=== PATIENT | male | born 1945 | race Two or more races ===

== ENCOUNTER 2024-10-14 06:34 | Emergency (ER) | payer OTHER, SELFPAY ==
[2024-10-14 06:38] VITALS: BP 179/96
--- NOTE | 2024-10-14 07:08 | ED.GENMED ---
History of Present Illness
General
Chief Complaint: Breathing Problem
Source: patient
Exam Limitations: none
Time Seen by Provider: 10/14/24 07:07
Nursing documentation reviewed up to this point in time: agreed with
History of Present Illness
History of Present Illness:
Patient is a 79-year-old male with past medical history of hypertension, diabetes enlarged prostate hypothyroidism, questionable history of asthma who presents to the ER for evaluation of shortness of breath. Patient had a cough for the past
several weeks is on several doses of antibiotics. Over the past several days he has been very short of breath. He denies any associated chest pain, lower extremity swelling. He denies any recent fever or chills. He went to urgent care 2 days ago
and had a chest x-ray which was negative. He has been taking Mucinex. He was given an albuterol inhaler however last night was not able to sleep due to being so short of breath. He complains of abdominal pain radiating to his rectum and low back.
Pt has been moving his bowels.
Past History
Past History
ED Past Medical History: Asthma, GERD, HTN, Hypercholesterolemia, NIDDM (Diet-controlled ) and Other (BPH )
ED Past Surgical History: Cardiac (Cardiac catheter 2004 )
Social History
Tobacco: Non-smoker
Alcohol: None
Personal:
Living: with family
Employment: Employed
Family History
Family History: Other (Noncontributory)
Review of Systems
Review of Systems
Allergies reviewed?: Yes
Other source history: family
All Other Systems: ROS reviewed and negative except as documented in HPI and ROS
Constitutional: Reports no symptoms; Denies fever, fatigue or chills
EENT: Reports no symptoms
Respiratory: Reports cough and trouble breathing; Denies hemoptysis
Phy Exam
General Physical Exam
General Presentation: no apparent distress
General age: appears stated age
General Skin: warm and dry
General Habitus: normal
General Mental: alert
General Hydration: appears well hydrated
Cardiovascular Exam
Cardiovascular Exam: bradycardia
Pulmonary Exam
Pulmonary Exam: no respiratory distress and other (slight exp wheezing)
Neurological Exam
Neurological Exam: alert and oriented x3
Musculoskeletal Exam
Musculoskeletal Exam: full ROM
Skin Exam
Skin Exam: normal color and warm/dry
Psychiatric Exam
Psychiatric Exam: normal mood/affect
Scores
Heart Failure Risk
Heart Failure Risk Score: Not Applicable
Course
Orders/Labs/Results
Orders:
Orders
10/14/24 06:35
Electrocardiogram (*1) Urgent
Reason for Study: Shortness of Breath
EKG- Treatment ONCE
10/14/24 07:27
Cardiac Monitoring- Treatment ONCE
EKG- Treatment ONCE
Albuterol Nebs [Ventolin Nebules] 2.5 mg INH R NOW STA
Dexamethasone Sod Phosphate [Decadron] 10 mg IV NOW STA
10/14/24 07:30
Complete Blood Count/With Diff Urgent
Comprehensive Metabolic Panel Urgent
Lipase Urgent
10/14/24 07:50
COVID-19 Antigen Urgent
Source: Nasal Swab
Influenza A+B Rapid Molecular Urgent
ANGELINA Source: Nasal Swab
Specimen Description:
10/14/24 07:52
CT Pe/abd/pel W Urgent
Comment:
Reason For Exam: SOB/abd pain
10/14/24 08:54
Urinalysis Reflex To Culture Urgent
Date Specimen was Collected: 10/14/24
Time Specimen was Collected: 08:53
10/14/24 09:04
Ipratropium/Albuterol Sulfate [Duoneb] 3 ml INH R NOW ONE
10/14/24 09:48
Albuterol Nebs [Ventolin Nebules] 2.5 mg INH R NOW STA
Abnormal Lab Results
10/14/24
07:30
RBC 4.14 L 10^6/uL
(4.70-6.10)
Hct 37.9 L %
(39.0-52.0)
MCH 32.1 H pg
(27.0-31.0)
Neutrophils % 39.6 L %
(42.2-75.2)
Monocytes % 11.2 H %
(1.7-9.3)
Eosinophils % 9.6 H %
(0-6)
Sodium 133 L mmol/L
(135-145)
Glucose 125 H mg/dl
(70-99)
10/14/24 07:30
10/14/24 07:30
Vital Signs
Initial and Last Documented VS:
Initial Vital Signs
Temp Pulse Resp BP Pulse Ox
97.9 F 56 16 179/96 98
10/14/24 06:38 10/14/24 06:38 10/14/24 06:38 10/14/24 06:38 10/14/24 06:38
Last Documented Vital Signs
Temp Pulse Resp BP Pulse Ox
97.9 F 67 16 131/81 97
10/14/24 06:38 10/14/24 08:15 10/14/24 10:19 10/14/24 10:19 10/14/24 08:15
MDM/Problems Addressed
Differential Diagnosis Includes:
Not limited to bronchitis, pneumonia, less likely PE, influenza, COVID
MDM/Problems Addressed:
Patient has had persistent cough over the past several weeks . Questionable history of asthma as per patient daughter was unaware of this however patient has been seeing his family providers in urgent care for this cough he has been on inhalers and
Tesaneeshon Perles taken [id number] cough medicines but last night because the cough could not sleep. He has no prior history of CHF /PE.
No recent fever or chills. Daughter concerned about persistent symptoms .
Patient complains of pain throughout his entire body when he coughs including his abdomen.
He presents to the ER awake alert in no acute distress. he does have wheezing as documented however he is nontachypneic and afebrile .
Daughter requesting CAT scan due to persistent symptoms.. Patient had outpatient x-ray which was negative. Daughter was also concerned about patient's abdominal pain. On exam abdomen soft nontender healing complains abdominal pain with coughing.
CAT scan PE study was done as well as CAT scan of the abdomen which is negative for acute findings no PE. Patient was feeling better here in the ER with multiple and Decadron. Patient was able to ambulate not hypoxic wheezing has improved. CAT
scan consistent with bronchitis. This is consistent with patient's presenting symptoms.
Patient has inhalers at home as well as Tessalon.
Will DC with short course of steroids as patient has not been on steroids yet with close outpatient follow-up PCP.
*Radiology
Radiology exam reviewed: radiology read reviewed
*Pulse Oximetry
Patient hypoxic: no
*Critical Care Note
Total Time (30-74mins, 75-104mins- exclusive of procedures): Not Applicable
Data Reviewed
Review of Other/Old Records Reveals: Other (Echo reviewed from 2019; normal LV function)
ED Attending Note
-
Portions of this chart may have been created with voice recognition software.� Occasional wrong word or��sound alike� substitutions may have occurred due to the inherent limitations of voice recognition software.
Discharge Plan
Departure
Patient Disposition: Home (Routine Discharge)
Date of Disposition: 10/14/24
Time of Disposition: 10:17
Patient with high blood pressure during this ER visit?: Yes
Condition: Fair
Covid-19: Not Applicable
Discharge Problem:
Bronchitis
Instructions: Bronchitis in adults - ED discharge instructions, BLOOD PRESSURE
Prescriptions:
New
prednisone 20 mg tablet
40 mg PO DAILY Qty: 8 0RF
No Action
amlodipine 2.5 MG tablet
2.5 mg PO DAILY Qty: 30 0RF
lovastatin [Altoprev] 40 MG tablet extended release 24 hr
40 mg PO DAILY
dutasteride 0.5 MG capsule
0.5 mg PO DAILY
carvedilol phosphate 20 MG capsule, ER multiphase 24 hr
20 mg PO DAILY
oxycodone-acetaminophen 5 MG/325 MG tablet
1 - 2 tab PO Q4HPRN PRN (Reason: pain) Qty: 20 0RF
cephalexin 500 MG capsule
500 mg PO QID Qty: 40 0RF
indomethacin 25 MG capsule
25 mg PO TID Qty: 30 1RF
Referrals:
Chris Rivera MD [Family Provider] -
Activity Restrictions/Additional Instructions:
As discussed continue previously prescribed inhalers. Stable hydrated. You are given first dose of IV Decadron(long-acting steroid today) here in the ER. A prescription for steroids was sent to your pharmacy to be taken daily for the next 4 days
starting tomorrow.
You may continue to take your Tessalon(benzonatate) for cough.
Follow-up close with your family doctor in next several days and return if any worsening of symptoms
Interventions
Interventions:
*Risk Screen - Suicide Last Done: 10/14/24 06:38
*General Assessment Last Done: 10/14/24 06:38
*Neglect/Abuse Screening Last Done: 10/14/24 06:38
ED- Fall Risk Assessment Last Done: 10/14/24 10:40
*ED COVID-19 Vaccine History Last Done: 10/14/24 06:38
*Nursing Disposition Last Done: 10/14/24 10:40
ED- Cardiac Assessment Last Done: 10/14/24 07:38
ED- Pulmonary Assessment Last Done: 10/14/24 07:38
Discharge Date and Time
Discharge Date/Time: 10/14/24 10:41
Print Language: BELARUSIAN
[2024-10-14 07:31] VITALS: BMI 24.9
[2024-10-14] MEDS: VENTOLIN NEBULES 2.5 MG INH ×2 (07:35→09:51)
[2024-10-14] MEDS: DECADRON 10 MG IV (07:35)
[2024-10-14 07:49] LABS: % Eosinophils 9.6 % (0-6); % Immature Granulocytes 0.4 % (0-0.5); % Lymphocytes 38.2 % (20.5-51.1); % Monocytes 11.2 % (1.7-9.3); % Neutrophils 39.6 % (42.2-75.2); Absolute Basophils 0.1 10^3/uL (0-0.2); Absolute Eosinophils 0.5 10^3/uL (0-0.7); Absolute Monocytes 0.6 10^3/uL (0.1-0.6); Hematocrit 37.9 % (39.0-52.0); Hemoglobin 13.3 g/dL (13.0-18.0); Mean Corp Hgb Conc. 35.1 g/dL (33.0-37.0); Mean Corpuscular Hgb 32.1 pg (27.0-31.0); Mean Corpuscular Volume 91.5 fL (80.0-94.0); Mean Platelet Volume 9.7 fL (7.4-10.4); Nucleated Red Blood Cells % 0 % (-); Platelet Count 221 10^3/uL (130-400); Red Blood Cell Count 4.14 10^6/uL (4.70-6.10); Red Cell Dist. Width 12.3 % (11.5-14.5); White Blood Cell Count 5.1 10^3/uL (4.8-10.8)
[2024-10-14 07:50] LABS: ALT (SGPT) 24 U/L (0-50); AST (SGOT) 32 U/L (17-59); Albumin 3.9 g/dl (3.5-5.0); Alkaline Phosphatase 65 U/L (38-126); Blood Urea Nitrogen 17 mg/dl (9-20); Calcium 9.2 mg/dl (8.4-10.2); Carbon Dioxide 30 mmol/L (22-30); Chloride 100 mmol/L (98-107); Estimated Creatinine Clearance 64 ml/min; Glucose 125 mg/dl (70-99); Lipase 136 U/L (23-300); Potassium 4.5 mmol/L (3.5-5.1); Sodium 133 mmol/L (135-145); Total Bilirubin 1.1 mg/dl (0.2-1.3); Total Protein 7.1 g/dl (6.3-8.2); eGFR > 60.00
[2024-10-14 08:07] VITALS: BP 127/84
[2024-10-14 08:10] LABS: COVID-19 Antigen Negative (Negative)
[2024-10-14] MEDS: DUONEB 3 ML INH (09:26)
[2024-10-14 09:45] LABS: Urine Albumin Negative (Neg - Trace); Urine Bilirubin Negative (Negative); Urine Character Clear (Clear); Urine Color Yellow; Urine Glucose Negative (Negative); Urine Ketone Negative (Negative); Urine Leukocyte Negative (Negative); Urine Nitrite Negative (Negative); Urine Occult Blood Negative (Negative); Urine Specific Gravity 1.005 (<1.030); Urine Urobilinogen Negative (Neg - 1+)
[2024-10-14 10:19] VITALS: BP 131/81
== END 2024-10-14 10:41 | disposition home or self-care (01) ==
LOC: EMR 06:34
PROVIDERS: Nurse Practitioner; EMERGENCY PHYSICIAN Emergency Medicine; FAMILY PHYSICIAN Family Medicine
DX: J40 Bronchitis, not specified as acute or chronic (principal); E03.9 Hypothyroidism, unspecified; E11.9 Type 2 diabetes mellitus without complications; E78.00 Pure hypercholesterolemia, unspecified; I10 Essential (primary) hypertension; K21.9 Gastro-esophageal reflux disease without esophagitis
CPT/HCPCS: 94640; 96374; 99285; 71275; 74177; 80053; 81003; 83690; 85025; 87502; 87811; 93005; Q9967

== ENCOUNTER → 2025-02-09 14:16 | Outpatient (REF) | payer OTHER, SELFPAY | LOC: HWRAD 14:16 | PROVIDERS: ATTENDING PHYSICIAN Internal Medicine Critical Care Medicine; FAMILY PHYSICIAN Family Medicine | DX: R06.02 Shortness of breath (principal); R05.3 Chronic cough | CPT/HCPCS: 71046 ==

== ENCOUNTER → 2025-02-28 06:52 | Outpatient (REF) | payer OTHER, SELFPAY | LOC: HWRCS 06:52 | PROVIDERS: ATTENDING PHYSICIAN Internal Medicine Cardiovascular Disease; FAMILY PHYSICIAN Family Medicine | DX: I34.0 Nonrheumatic mitral (valve) insufficiency (principal); R07.9 Chest pain, unspecified; R06.09 Other forms of dyspnea | CPT/HCPCS: 93306 ==

== ENCOUNTER 2025-03-01 19:03 | Emergency (ER) | payer OTHER, SELFPAY ==
[2025-03-01 19:08] VITALS: BP 168/89
[2025-03-01 19:09] VITALS: BP 168/89
[2025-03-01 19:16] VITALS: BP 168/89
[2025-03-01 19:18] VITALS: BMI 26.1
[2025-03-01 20:00] VITALS: BP 146/74
[2025-03-01 21:05] VITALS: BP 160/72
--- NOTE | 2025-03-01 21:36 | ED.GENMED ---
History of Present Illness
General
Chief Complaint: Breathing Problem
Source: patient
Time Seen by Provider: 03/01/25 21:27
History of Present Illness
History of Present Illness:
80-year-old male presents to the emergency room complaining of wheezing, shortness of breath. Patient became quite short of breath this afternoon prompting him to call 911. Medics found the patient with an increased work of breathing and mildly
hypoxic. He was given nebulized medication and arrives feeling somewhat better. Patient states has been having intermittent issues with wheezing and shortness of breath over the past several weeks. He was seen by his mail room clerk today actually.
He was prescribed a new medication which she has not started yet. He does not know the name of the medication. Patient denies any fever or chills. He has a chronic cough with has not really changed much recently.
Past History
Past History
ED Past Medical History: Asthma, GERD, HTN, Hypercholesterolemia, NIDDM (Diet-controlled ) and Other (BPH )
ED Past Surgical History: Cardiac (Cardiac catheter 2004 )
Social History
Tobacco: Non-smoker
Alcohol: None
Personal:
Living: with family
Employment: Employed
Family History
Family History: Other (Noncontributory)
Phy Exam
Physical Exam
Physical Exam:
General: Awake, Alert, Oriented X3. No acute distress.
Vitals: unremarkable
Head: Atraumatic
Eyes: Pupils equal, EOMI
Throat: Airway intact, no exudates
Neck: Trachea midline
Lungs: Decreased breath sounds bilaterally, extra wheezing
Heart: Regular rate, no murmurs
Abd: Soft, Nontender, No pulsatile mass
Neuro: Nonfocal
Skin: Warm, dry, no rash
Extremities: pulses equal b/l, no edema
Scores
Heart Failure Risk
Heart Failure Risk Score: Not Applicable
Course
Orders/Labs/Results
Orders:
Orders
03/01/25 19:57
Electrocardiogram (*1) Urgent
Reason for Study: Shortness of Breath
03/01/25 19:58
EKG- Treatment ONCE
03/01/25 21:35
Ipratropium/Albuterol Sulfate [Duoneb] 3 ml INH R NOW STA
Prednisone [Deltasone] 50 mg PO NOW STA
03/01/25 21:53
CR Chest - 2 Views Urgent
Comment:
Reason For Exam: shortness of breath
Vital Signs
Initial and Last Documented VS:
Initial Vital Signs
Pulse Resp BP Pulse Ox
60 33 168/89 100
03/01/25 19:08 03/01/25 19:08 03/01/25 19:08 03/01/25 19:08
Last Documented Vital Signs
Temp Pulse Resp BP Pulse Ox
98.2 F 58 25 149/78 93
03/01/25 19:09 03/01/25 23:45 03/01/25 23:45 03/01/25 23:11 03/01/25 23:45
MDM/Problems Addressed
Differential Diagnosis Includes:
Asthma exacerbation, COPD exacerbation, pneumonia, bronchitis, pneumothorax
MDM/Problems Addressed:
Patient presents with shortness of breath and wheezing. He felt better after treatment by paramedics and now much better after treatment here. I reviewed the patient's note from his pulmonary office. They prescribed trilogy, prednisone taper and
montelukast. Chest x-ray shows no acute abnormalities. Patient should have all his prescriptions filled from the mail room clerk. Dose of steroid given here but no prescription necessary
*Radiology
Radiology exam reviewed: preliminary read by ED provider (No acute abnormality on my review of the patient's chest x-ray)
*Pulse Oximetry
SaO2: 97
Oxygen Mode of Delivery: Room air
Patient hypoxic: no
*EKG
Interpreted by ED Provider?: Yes
Heart Rate: 53
Rate: bradycardiac
Rhythm: sinus
[place]: normal axis
Interval: normal interval
QRS Pattern: normal QRS
Ischemia: no ischemia
*Sheet Metal Installer Interpretation
Rate: bradycardiac
Interpretation: normal
Rhythm: sinus
*Critical Care Note
Total Time (30-74mins, 75-104mins- exclusive of procedures): Not Applicable
Data Reviewed
Review of Other/Old Records Reveals: Progress Notes (Patient's pulmonary office visit)
ED Attending Note
-
Portions of this chart may have been created with voice recognition software.� Occasional wrong word or��sound alike� substitutions may have occurred due to the inherent limitations of voice recognition software.
Discharge Plan
Departure
Patient Disposition: Home (Routine Discharge)
Date of Disposition: 03/01/25
Time of Disposition: 23:39
Patient with high blood pressure during this ER visit?: Yes
Condition: Good
Discharge Problem:
Asthma exacerbation
Instructions: Asthma, Adult (DC), BLOOD PRESSURE
Prescriptions:
No Action
amlodipine 2.5 MG tablet
2.5 mg PO DAILY Qty: 30 0RF
lovastatin [Altoprev] 40 MG tablet extended release 24 hr
40 mg PO DAILY
dutasteride 0.5 MG capsule
0.5 mg PO DAILY
carvedilol phosphate 20 MG capsule, ER multiphase 24 hr
20 mg PO DAILY
oxycodone-acetaminophen 5 MG/325 MG tablet
1 - 2 tab PO Q4HPRN PRN (Reason: pain) Qty: 20 0RF
cephalexin 500 MG capsule
500 mg PO QID Qty: 40 0RF
indomethacin 25 MG capsule
25 mg PO TID Qty: 30 1RF
prednisone 20 mg tablet
40 mg PO DAILY Qty: 8 0RF
Referrals:
Chris Rivera MD [Family Provider, Family Practice]
Activity Restrictions/Additional Instructions:
Take the medications that were prescribed by your mail room clerk. Return to the emergency room if you feel like you are getting worse.
Interventions
Interventions:
*Risk Screen - Suicide Last Done: 03/01/25 19:09
*General Assessment Last Done: 03/01/25 19:09
*Neglect/Abuse Screening Last Done: 03/01/25 19:09
*ED- Fall Risk Assessment Last Done: 03/01/25 19:18
*ED COVID-19 Vaccine History Last Done: 03/01/25 19:18
*Nursing Disposition Last Done: 03/01/25 23:49
ED- Cardiac Assessment Last Done: 03/01/25 19:18
ED- Pulmonary Assessment Last Done: 03/01/25 19:18
Discharge Date and Time
Discharge Date/Time: 03/01/25 23:49
Print Language: HAITIAN
[2025-03-01] MEDS: DELTASONE 50 MG PO (21:47)
[2025-03-01] MEDS: DUONEB 3 ML INH (21:47)
[2025-03-01 23:11] VITALS: BP 149/78
== END 2025-03-01 23:49 | disposition home or self-care (01) ==
LOC: EMR 19:03
PROVIDERS: EMERGENCY PHYSICIAN Emergency Medicine; FAMILY PHYSICIAN Family Medicine
DX: J45.901 Unspecified asthma with (acute) exacerbation (principal); K21.9 Gastro-esophageal reflux disease without esophagitis; I10 Essential (primary) hypertension; E78.00 Pure hypercholesterolemia, unspecified; E11.9 Type 2 diabetes mellitus without complications; N40.0 Benign prostatic hyperplasia without lower urinary tract symptoms
CPT/HCPCS: 99283; 94640; 71046; 93005

== ENCOUNTER → 2025-03-16 07:04 | Outpatient (REF) | payer OTHER, SELFPAY | LOC: RCS 07:04 | PROVIDERS: ATTENDING PHYSICIAN Internal Medicine Cardiovascular Disease; FAMILY PHYSICIAN Family Medicine | DX: I34.0 Nonrheumatic mitral (valve) insufficiency (principal); R07.9 Chest pain, unspecified; R06.09 Other forms of dyspnea | CPT/HCPCS: 78452; 93017; A9500; J2785 ==